=== PATIENT | female | born 1955 | race Caucasian/White ===

== ENCOUNTER 2019-04-08 08:51 | Inpatient (IN) | payer BC ==
--- NOTE | 2019-04-08 09:19 | EDM.PDOC ---
ED HPI GENERAL MEDICAL PROBLEM - General Chief Complaint: Gastrointestinal Problem Stated Complaint: BLOOD COMING OUT OF BUTTOCK POST COLONOSCOPY SURG Time Seen by Provider: 04/08/19 09:12 Source of Information: Reports: Patient History Limitations: Reports: No Limitations - History of Present Illness INITIAL COMMENTS - FREE TEXT/NARRATIVE: 63-year-old female from [facility] presents to the ED due to 2 large stools this morning it just contained bright red blood. These 2 stools occurred within about 10-15 minutes of each other this morning. Patient had maroon colored stool the last couple of days perhaps 3 bowel movements yesterday and 2 the day prior mixed with stool. Diffuse lower abdominal cramping pain. No nausea or vomiting. Appetite has been normal. Of note she had a colonoscopy performed in [place] on March 30 and a polyp was resected. This is her second colonoscopy in the last 7 years. She had polyps resected on the first occasion as well. He never had any bleeding per rectum after the polyp resection after this polyp removal. She feels a little lightheaded dizzy. No shortness of breath. Her color looks good. Onset: Today Onset Date: 04/08/19 Onset Time: 07:00 Duration: Minutes:, Other (2 large bright red bloody stools per rectum this morning. Melena stool for the last 2 days.) Location: Reports: Abdomen (Lower GI bleeding.) Quality: Reports: Other Severity: Mild (Mild diffuse lower abdominal cramping pain) Improves with: Reports: None Worsens with: Reports: None Context: Reports: Other (Spontaneous occurrence. Colonoscopy was done March 30.). Denies: Activity, Exercise, Lifting, Sick Contact, Trauma Associated Symptoms: Reports: Malaise, Nausea/Vomiting, Other (Feeling slightly lightheaded at times). 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: Reports: Other (see below) (Patient doesn't take any blood thinners.) Lower Abdomen Pain Score (Numeric/FACES): 3 - Related Data Allergies Allergy/AdvReac Type Severity Reaction Status Date / Time Penicillins Allergy Other Verified 04/08/19 09:09 Sulfa (Sulfonamide Allergy Anaphylactic Verified 04/08/19 09:09 Antibiotics) Shock Home Meds: Home Meds DULoxetine [Cymbalta] 60 mg PO DAILY 04/08/19 [History] Diclofenac Sodium 150 mg PO DAILY 04/08/19 [History] Lisinopril/Hydrochlorothiazide [Lisinopril-Hctz 20-12.5 mg Tab] 1 tab PO DAILY 04/08/19 [History] Metoprolol Succinate [Toprol XL] 25 mg PO DAILY 04/08/19 [History] Past Medical History Cardiovascular History: Reports: Hypertension Gastrointestinal History: Reports: Other (See Below) (Colonic polyps resected 2.) - Past Surgical History GI Surgical History: Reports: Cholecystectomy, Colonoscopy (2 with polyp resections on both occurrences. She believes her first colonoscopy was done 7 years ago and the second was just done March 30 of this year with a polyp resection once again.) Social & Family History - Living Situation & Occupation Living situation: Reports: Occupation: Employed Social History Comment: Here in [facility] visiting from [place], [place]. ED ROS GENERAL - Review of Systems Review Of Systems: See Below Constitutional: Reports: Decreased Appetite. Denies: Fever, Chills, Malaise, Weakness, Fatigue, Weight Loss HEENT: Reports: No Symptoms Respiratory: Reports: No Symptoms Cardiovascular: Reports: Blood Pressure Problem Endocrine: Reports: Fatigue GI/Abdominal: Reports: Abdominal Pain, Decreased Appetite (Mild vague lower bowel discomfort but not pain.), Hematochezia, Melena (bright red bleeding per rectum 2 within a short period of time this morning. Will 3 times yesterday and twice the day prior.) : Reports: No Symptoms Musculoskeletal: Reports: No Symptoms Skin: Reports: No Symptoms Neurological: Reports: No Symptoms Psychiatric: Reports: No Symptoms Hematologic/Lymphatic: Reports: No Symptoms Immunologic: Reports: No Symptoms ED EXAM, GI/ABD - Physical Exam Exam: See Below Exam Limited By: No Limitations General Appearance: Alert, WD/WN, No Apparent Distress, Other (Color looks good. Temperature is 35.9. Heart rate was 99 and sinus. Respiratory rate of 20 BP 139/90 pulse oximetry 94% on room air.) Eyes: Bilateral: Normal Appearance Throat/Mouth: Normal Inspection, Normal Lips, Normal Teeth, Normal Oropharynx Respiratory/Chest: No Respiratory Distress, Lungs Clear, Normal Breath Sounds, No Accessory Muscle Use Cardiovascular: Normal Peripheral Pulses, Regular Rate, Rhythm, No Edema, No Gallop, No Murmur, No Rub GI/Abdominal Exam: Soft, Non-Tender, No Organomegaly, No Abnormal Bruit, No Mass , Pelvis Stable (Bowel sounds were fairly quiet sent in all 4 quadrants.), Abnormal Bowel Sounds Back Exam: Normal Inspection, Full Range of Motion. No: CVA Tenderness (L), CVA Tenderness (R) Extremities: Normal Inspection, Normal Range of Motion, Non-Tender, No Pedal Edema, Normal Capillary Refill Neurological: Alert, Oriented, CN II-XII Intact, Normal Cognition Psychiatric: Normal Affect, Normal Mood Skin Exam: Warm, Dry, Normal Color, No Rash EKG INTERPRETATION EKG Date: 04/08/19 Time: 09:45 Rhythm: NSR Rate (Beats/Min): 85 Percy: Normal P-Wave: Present QRS: Other (Decreased voltage throughout the precordial leads. Left ventricular hypertrophy pattern) ST-T: Normal QT: Normal EKG Interpretation Comments: Abnormal ECG Course - Vital Signs Last Recorded V/S: Last Vital Signs Temp 36.8 C 04/08/19 11:50 Pulse 92 04/08/19 11:50 Resp 20 04/08/19 11:50 BP 147/86 H 04/08/19 11:50 Pulse Ox 95 04/08/19 11:50 Orthostatic Blood Pressure [ 93/58 Standing] Orthostatic Blood Pressure [ 125/88 Supine] - Orders/Labs/Meds Orders: Active Orders 24 hr Category Date Time Status PATIENT RETYPE [BBK] Routine Lab 04/08/19 10:54 Ordered Medication Orders Potassium Chloride/Dextrose/Sod Cl (D5 Ns With 20 Meq Kcl) 1,000 mls @ 150 mls/ hr IV ASDIRECTED [facility] Last Admin: 04/08/19 12:17 Dose: 150 mls/hr Lactated Ringer's (Ringers, Lactated) 1,000 mls @ 150 mls/hr IV ASDIRECTED [facility] Ondansetron HCl (Zofran) 4 mg IVPUSH Q6HR PRN PRN Reason: Nausea Labs: Laboratory Tests 04/08/19 04/08/19 04/08/19 Range/Units 09:23 09:23 09:23 WBC 6.84 (3.98-10.04) K/mm3 RBC 3.96 L (3.98-5.22) M/mm3 Hgb 12.6 (11.2-15.7) gm/dl Hct 38.6 (34.1-44.9) % MCV 97.5 H (79.4-94.8) fl MCH 31.8 (25.6-32.2) pg MCHC 32.6 (32.2-35.5) g/dl RDW Std Deviation 48.3 H (36.4-46.3) fL Plt Count 329 (182-369) K/mm3 MPV 8.8 L (9.4-12.3) fl Neut % (Auto) 59.4 (34.0-71.1) % Lymph % (Auto) 26.5 (19.3-51.7) % [place] % (Auto) 10.4 (4.7-12.5) % Eos % (Auto) 3.1 (0.7-5.8) Baso % (Auto) 0.6 (0.1-1.2) % Neut # (Auto) 4.07 (1.56-6.13) K/mm3 Lymph # (Auto) 1.81 (1.18-3.74) K/mm3 [place] # (Auto) 0.71 H (0.24-0.36) K/mm3 Eos # (Auto) 0.21 (0.04-0.36) K/mm3 Baso # (Auto) 0.04 (0.01-0.08) K/mm3 PT 10.7 (9.7-12.0) SECONDS INR 0.98 APTT 27 (22-31) SECONDS Sodium 142 (136-145) mEq/L Potassium 4.4 (3.5-5.1) mEq/L Chloride 106 (98-107) mEq/L Carbon Dioxide 27 (21-32) mEq/L Anion Gap 13.4 (5-15) BUN 33 H (7-18) mg/dL Creatinine 0.9 (0.55-1.02) mg/dL Est Cr Clr Drug Dosing 69.19 mL/min Estimated GFR (MDRD) > 60 (>60) mL/min BUN/Creatinine Ratio 36.7 H (14-18) Glucose 99 (80-115) mg/dL Calcium 8.5 (8.5-10.1) mg/dL Magnesium 2.0 (1.8-2.4) mg/dl Total Bilirubin 0.4 (0.2-1.0) mg/dL AST 29 (15-37) U/L ALT 73 H (14-59) U/L Alkaline Phosphatase 74 (46-116) U/L Total Protein 6.6 (6.4-8.2) g/dl Albumin 3.2 L (3.4-5.0) g/dl Globulin 3.4 gm/dL Albumin/Globulin Ratio 0.9 L (1-2) Blood Type Gel Antibody Screen 04/08/19 Range/Units 09:23 WBC (3.98-10.04) K/mm3 RBC (3.98-5.22) M/mm3 Hgb (11.2-15.7) gm/dl Hct (34.1-44.9) % MCV (79.4-94.8) fl MCH (25.6-32.2) pg MCHC (32.2-35.5) g/dl RDW Std Deviation (36.4-46.3) fL Plt Count (182-369) K/mm3 MPV (9.4-12.3) fl Neut % (Auto) (34.0-71.1) % Lymph % (Auto) (19.3-51.7) % [place] % (Auto) (4.7-12.5) % Eos % (Auto) (0.7-5.8) Baso % (Auto) (0.1-1.2) % Neut # (Auto) (1.56-6.13) K/mm3 Lymph # (Auto) (1.18-3.74) K/mm3 [place] # (Auto) (0.24-0.36) K/mm3 Eos # (Auto) (0.04-0.36) K/mm3 Baso # (Auto) (0.01-0.08) K/mm3 PT (9.7-12.0) SECONDS INR APTT (22-31) SECONDS Sodium (136-145) mEq/L Potassium (3.5-5.1) mEq/L Chloride (98-107) mEq/L Carbon Dioxide (21-32) mEq/L Anion Gap (5-15) BUN (7-18) mg/dL Creatinine (0.55-1.02) mg/dL Est Cr Clr Drug Dosing mL/min Estimated GFR (MDRD) (>60) mL/min BUN/Creatinine Ratio (14-18) Glucose (80-115) mg/dL Calcium (8.5-10.1) mg/dL Magnesium (1.8-2.4) mg/dl Total Bilirubin (0.2-1.0) mg/dL AST (15-37) U/L ALT (14-59) U/L Alkaline Phosphatase (46-116) U/L Total Protein (6.4-8.2) g/dl Albumin (3.4-5.0) g/dl Globulin gm/dL Albumin/Globulin Ratio (1-2) Blood Type O POSITIVE Gel Antibody Screen Negative Meds: Medications Generic Name Dose Route Start Last Admin Trade Name Freq PRN Reason Stop Dose Admin Potassium Chloride/Dextrose/Sod Cl 1,000 mls @ 150 mls/hr 04/08/19 11:45 12:17 D5 Ns With 20 Meq Kcl IV 150 mls/hr ASDIRECTED ANN Administration Lactated Ringer's 1,000 mls @ 150 mls/hr 04/08/19 11:45 Ringers, Lactated IV ASDIRECTED ANN Ondansetron HCl 4 mg 04/08/19 11:38 Zofran IVPUSH Q6HR PRN Nausea Discontinued Medications Generic Name Dose Route Start Last Admin Trade Name Freq PRN Reason Stop Dose Admin Sodium Chloride 1,000 mls @ 250 mls/hr 04/08/19 09:30 04/08/19 10:40 Normal Saline IV 250 mls/hr ASDIRECTED ANN Administration - Radiology Interpretation Free Text/Narrative:: 63-year-old female presents to the ED with melena stool 2 the day prior 3 times yesterday mixed with stool and bright red bleeding on its own 2 this morning about 10 minutes apart with a large gushes of bright red blood per rectum. Patient had a colonoscopy performed on of this year in [facility] where she resides. She is currently here in [facility]. Her pressure is 1/25/88 supine with a heart rate of 87 and standing blood pressure is 93/58 with pulse of 94 indicating she is mildly orthostatic. Plan we discussed the potential need for blood and she has no objections. Consent for blood transfusion will be signing case we need blood. At this time she has a benign abdomen. A KUB will be performed. Routine labs including coags to be done. Likely will need admission to the hospital at least on an observation basis due to fairly active GI bleeding this morning. IV will be normal saline at 250 mils per hour. - Re-Assessments/Exams Free Text/Narrative Re-Assessment/Exam: 04/08/19 10:43 KUB appears to be within normal limits. 04/08/19 10:45 Labs reveal a normal white count at 6.84. Hemoglobin is 12.6 with hematocrit 38.6. MCV is mildly elevated at 97.5. Platelet callus 3 and 29, 000. The differential shows 59% neutrophils PT is 10.7 with an INR of 0.98. PTT is 27. Sodium 142 with potassium of 4.4. Chloride is 106 with a bicarbonate of 27. Anion gap is 13.4. BUN is slightly elevated at 33 with a creatinine of 0.9. The slightly elevated BUN it may be suggestive of an upper GI bleed. Glucose is 99 with a calcium of 8.5. Magnesium is 2.0 liver function is normal other than slightly elevated ALT at 73. Total protein is 6.6 with an albumin fraction of 3.2. 04/08/19 11:00 I had spoken with Dr. Walker earlier prior to him going to [facility] and identified that this lady would need to be admitted to the hospital. He asked me to call Dr. Wild car electronics installer surgeon and I have done so and spoken with her. She will see the patient on the [facility]. Bridge orders were written. Departure - Departure Time of Disposition: 11:55 Disposition: Admitted As Inpatient 66 Condition: Fair Clinical Impression: Lower GI hemorrhage - Discharge Information *PRESCRIPTION DRUG MONITORING PROGRAM REVIEWED*: Not Applicable *COPY OF PRESCRIPTION DRUG MONITORING REPORT IN PATIENT FABRICE: Not Applicable Sepsis Event Note - Evaluation Sepsis Screening Result: No Definite Risk - Focused Exam Vital Signs: Vital Signs Temp Pulse Resp BP Pulse Ox 04/08/19 09:05 35.9 C L 99 20 139/90 94 L Date Exam was Performed: 04/08/19 Time Exam was Performed: 14:53 - My Orders Last 24 Hours: My Active Orders 04/08/19 10:54 PATIENT RETYPE [BBK] Routine - Assessment/Plan Last 24 Hours: My Active Orders 04/08/19 10:54 PATIENT RETYPE [BBK] Routine
[2019-04-08] MEDS ORDERED: Sodium Chloride 0.9% 1,000 ML IV SCH (09:30)
--- NOTE | 2019-04-08 09:53 | CR ---
Abdomen: Supine view of the abdomen was obtained. Comparison: No prior abdominal imaging is available. Scoliosis and degenerative change is noted within the spine. Surgical clips are seen within the upper right abdomen. Right hip prosthesis is seen. Calcifications are noted within the pelvis which are believed to be incidental. Bowel gas pattern is normal. Impression: 1. Findings as noted above. 2. Nothing acute is appreciated on supine abdominal x-ray. Diagnostic code #2 This report was dictated in [place] Standard Time
[2019-04-08] MEDS ORDERED: Ondansetron 4 MG/2 ML SDV IVPUSH PRN (11:38)
[2019-04-08] MEDS ORDERED: Dextrose 5%-0.9% NaCl with KCl 1,000 ML IV SCH (11:45)
[2019-04-08] MEDS ORDERED: Lactated Ringers 1,000 ML IV SCH (11:45)
--- NOTE | 2019-04-08 12:42 | PCM.CONS ---
H&P History of Present Illness - General Date of Service: 04/08/19 Admit Problem/Dx: Admission Diagnosis/Problem Admission Diagnosis/Problem Gastric hemorrhage Source of Information: Patient, Provider History Limitations: Reports: No Limitations - History of Present Illness Initial Comments - Free Text/Narative: The patient is a 63 y/o female who presents with hematochezia and BRBPR. She reports having a colonoscopy 9 days ago at an outside facility for history of colon polyps. She had a large polyp removed and was warned that she may have some bleeding; no diverticulosis reported by patient. She sought treatment because the bleeding become more profuse. She noted hematochezia 5 days ago that progressed to BRBPR today. She had some lightheadedness at home. She denies any dyspnea. No nausea/vomiting or melena. Upon presentation, she had orthostatic hypotension in the ED. Lower Abdomen Pain Score (Numeric/FACES): 3 - Related Data Allergies/Adverse Reactions: Allergies Allergy/AdvReac Type Severity Reaction Status Date / Time Penicillins Allergy Other Verified 04/08/19 09:09 Sulfa (Sulfonamide Allergy Anaphylactic Verified 04/08/19 09:09 Antibiotics) Shock Home Medications: Home Meds DULoxetine [Cymbalta] 60 mg PO DAILY 04/08/19 [History] Diclofenac Sodium 150 mg PO DAILY 04/08/19 [History] Lisinopril/Hydrochlorothiazide [Lisinopril-Hctz 20-12.5 mg Tab] 1 tab PO DAILY 04/08/19 [History] Metoprolol Succinate [Toprol XL] 25 mg PO DAILY 04/08/19 [History] Past Medical History HEENT History: Reports: Impaired Vision Cardiovascular History: Reports: Hypertension Gastrointestinal History: Reports: Other (See Below) (Colonic polyps resected 2.) Genitourinary History: Reports: None 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 She believes her first colonoscopy was done 7 years ago and the second was just done March 30 of this year with a polyp resection once again.) Social & Family History - Family History Cardiac: Reports: Hypertension Endocrine/Metabolic: Reports: Diabetes, type II - Tobacco Use Smoking Status *Q: Never Smoker Second Hand Smoke Exposure: No - Caffeine Use Caffeine Use: Reports: Soda - Recreational Drug Use Recreational Drug Use: No - Living Situation & Occupation Living situation: Reports: Occupation: Employed H&P Review of Systems - Review of Systems: Review Of Systems: See Below General: Denies: Fever, Chills HEENT: Reports: No Symptoms Pulmonary: Reports: No Symptoms Cardiovascular: Reports: Lightheadedness Gastrointestinal: Reports: Abdominal Pain, Hematochezia. Denies: Anorexia, Melena, Nausea, Vomiting Genitourinary: Reports: No Symptoms Musculoskeletal: Reports: No Symptoms Skin: Reports: No Symptoms Neurological: Reports: No Symptoms Hematologic/Lymphatic: Denies: Easy Bleeding, Easy Bruising Exam - Exam Exam: See Below - Vital Signs Vital Signs: Last Vital Signs Temp 36.8 C 04/08/19 11:50 Pulse 92 04/08/19 11:50 Resp 20 04/08/19 11:50 BP 147/86 H 04/08/19 11:50 Pulse Ox 95 04/08/19 11:50 Orthostatic Blood Pressure [ 93/58 Standing] Orthostatic Blood Pressure [ 125/88 Supine] Weight: 92.714 kg - Exam Quality Assessment: No: Supplemental Oxygen General: Alert, Oriented HEENT: EOMI Neck: Supple Lungs: Clear to Auscultation, Normal Respiratory Effort Cardiovascular: Regular Rate, Regular Rhythm GI/Abdominal Exam: Soft, Non-Tender, No Distention Rectal (Female) Exam: No: Hemorrhoids (no external hemorrhoids) Extremities: Normal Inspection, No Pedal Edema Peripheral Pulses: 2+: Dorsalis Pedis (L), Dorsalis Pedis (R) Skin: Warm, Dry, Intact Neurological: Cranial Nerves Intact Neuro Extensive - Mental Status: Normal Mood/Affect - Patient Data Lab Results Last 24 hrs: Laboratory Results - last 24 hr 04/08/19 04/08/19 04/08/19 Range/Units 09:23 09:23 09:23 WBC 6.84 (3.98-10.04) K/mm3 RBC 3.96 L (3.98-5.22) M/mm3 Hgb 12.6 (11.2-15.7) gm/dl Hct 38.6 (34.1-44.9) % MCV 97.5 H (79.4-94.8) fl MCH 31.8 (25.6-32.2) pg MCHC 32.6 (32.2-35.5) g/dl RDW Std Deviation 48.3 H (36.4-46.3) fL Plt Count 329 (182-369) K/mm3 MPV 8.8 L (9.4-12.3) fl Neut % (Auto) 59.4 (34.0-71.1) % Lymph % (Auto) 26.5 (19.3-51.7) % [place] % (Auto) 10.4 (4.7-12.5) % Eos % (Auto) 3.1 (0.7-5.8) Baso % (Auto) 0.6 (0.1-1.2) % Neut # (Auto) 4.07 (1.56-6.13) K/mm3 Lymph # (Auto) 1.81 (1.18-3.74) K/mm3 [place] # (Auto) 0.71 H (0.24-0.36) K/mm3 Eos # (Auto) 0.21 (0.04-0.36) K/mm3 Baso # (Auto) 0.04 (0.01-0.08) K/mm3 PT 10.7 (9.7-12.0) SECONDS INR 0.98 APTT 27 (22-31) SECONDS Sodium 142 (136-145) mEq/L Potassium 4.4 (3.5-5.1) mEq/L Chloride 106 (98-107) mEq/L Carbon Dioxide 27 (21-32) mEq/L Anion Gap 13.4 (5-15) BUN 33 H (7-18) mg/dL Creatinine 0.9 (0.55-1.02) mg/dL Est Cr Clr Drug Dosing 69.19 mL/min Estimated GFR (MDRD) > 60 (>60) mL/min BUN/Creatinine Ratio 36.7 H (14-18) Glucose 99 (80-115) mg/dL Calcium 8.5 (8.5-10.1) mg/dL Magnesium 2.0 (1.8-2.4) mg/dl Total Bilirubin 0.4 (0.2-1.0) mg/dL AST 29 (15-37) U/L ALT 73 H (14-59) U/L Alkaline Phosphatase 74 (46-116) U/L Total Protein 6.6 (6.4-8.2) g/dl Albumin 3.2 L (3.4-5.0) g/dl Globulin 3.4 gm/dL Albumin/Globulin Ratio 0.9 L (1-2) Blood Type Gel Antibody Screen 04/08/19 Range/Units 09:23 WBC (3.98-10.04) K/mm3 RBC (3.98-5.22) M/mm3 Hgb (11.2-15.7) gm/dl Hct (34.1-44.9) % MCV (79.4-94.8) fl MCH (25.6-32.2) pg MCHC (32.2-35.5) g/dl RDW Std Deviation (36.4-46.3) fL Plt Count (182-369) K/mm3 MPV (9.4-12.3) fl Neut % (Auto) (34.0-71.1) % Lymph % (Auto) (19.3-51.7) % [place] % (Auto) (4.7-12.5) % Eos % (Auto) (0.7-5.8) Baso % (Auto) (0.1-1.2) % Neut # (Auto) (1.56-6.13) K/mm3 Lymph # (Auto) (1.18-3.74) K/mm3 [place] # (Auto) (0.24-0.36) K/mm3 Eos # (Auto) (0.04-0.36) K/mm3 Baso # (Auto) (0.01-0.08) K/mm3 PT (9.7-12.0) SECONDS INR APTT (22-31) SECONDS Sodium (136-145) mEq/L Potassium (3.5-5.1) mEq/L Chloride (98-107) mEq/L Carbon Dioxide (21-32) mEq/L Anion Gap (5-15) BUN (7-18) mg/dL Creatinine (0.55-1.02) mg/dL Est Cr Clr Drug Dosing mL/min Estimated GFR (MDRD) (>60) mL/min BUN/Creatinine Ratio (14-18) Glucose (80-115) mg/dL Calcium (8.5-10.1) mg/dL Magnesium (1.8-2.4) mg/dl Total Bilirubin (0.2-1.0) mg/dL AST (15-37) U/L ALT (14-59) U/L Alkaline Phosphatase (46-116) U/L Total Protein (6.4-8.2) g/dl Albumin (3.4-5.0) g/dl Globulin gm/dL Albumin/Globulin Ratio (1-2) Blood Type O POSITIVE Gel Antibody Screen Negative Result Diagrams: 04/08/19 09:23 04/08/19 09:23 Sepsis Event Note - Evaluation Sepsis Screening Result: No Definite Risk - Focused Exam Vital Signs: Vital Signs Temp Temp Pulse Pulse Resp BP BP 04/08/19 11:50 36.8 C 92 20 147/86 H 04/08/19 09:05 35.9 C L 99 20 139/90 Pulse Ox 04/08/19 11:50 95 04/08/19 09:05 94 L Date Exam was Performed: 04/08/19 Time Exam was Performed: 13:09 Consult PN Assessment/Plan (1) Lower GI bleed SNOMED Code(s): 22171545 Code(s): K92.2 - GASTROINTESTINAL HEMORRHAGE, UNSPECIFIED Current Visit: Yes Problem List Initiated/Reviewed/Updated: Yes Plan: 63 y/o lady with lower GI bleed after recent colonoscopy. Likely bleeding from polypectomy site as pt did not have any diverticula reported to her. - NPO with IVF resuscitation. bolus IVF as needed - Repeat Hg every 6hr. May transfuse as needed - Ambulate and SCDs for DVT ppx, recommend holding any heparin/lovenox - hold home antihypertensives at this time - will continue to monitor for ongoing blood loss - consider prep for repeat colonoscopy if pt has significant continued blood loss Hien Garcia MD General Surgery
--- NOTE | 2019-04-08 14:54 | PCM.HP.2 ---
H&P History of Present Illness - General Date of Service: 04/08/19 Admit Problem/Dx: Admission Diagnosis/Problem Admission Diagnosis/Problem Gastric hemorrhage - History of Present Illness Initial Comments - Free Text/Narative: 63-year-old female who had a colonoscopy done on March 30, 2019 developed maroon-colored stools starting approximately 2 days ago. Patient states that today she has had bright red blood per rectum this morning. She had 2 stools that occur close together. She has not had another bloody stool since coming to the emergency room in hospital. Patient had a moderately large polypectomy during colonoscopy. No diverticulitis was stated. Patient states that she did develop lightheadedness today and was orthostatic in the emergency room. She is otherwise a healthy 63-year-old with past medical history of hypertension and back pain. She is on diclofenac for her back pain. She started this 2 weeks ago and did not hold it for her colonoscopy. In the emergency room EKG was done which showed a normal sinus rhythm with ventricular rate of 85 bpm. Normal P waves, Q waves, and decreased voltage throughout the precordial leads. Orthostatic blood pressures, supine 125/88, standing 93/58. Initial hemoglobin 12.6. Lower Abdomen Pain Score (Numeric/FACES): 3 - Related Data Allergies/Adverse Reactions: Allergies Allergy/AdvReac Type Severity Reaction Status Date / Time Penicillins Allergy Other Verified 04/08/19 09:09 Sulfa (Sulfonamide Allergy Anaphylactic Verified 04/08/19 09:09 Antibiotics) Shock Home Medications: Home Meds DULoxetine [Cymbalta] 60 mg PO DAILY 04/08/19 [History] Diclofenac Sodium 150 mg PO DAILY 04/08/19 [History] Lisinopril/Hydrochlorothiazide [Lisinopril-Hctz 20-12.5 mg Tab] 1 tab PO DAILY 04/08/19 [History] Metoprolol Succinate [Toprol XL] 25 mg PO DAILY 04/08/19 [History] Past Medical History HEENT History: Reports: Impaired Vision Cardiovascular History: Reports: Hypertension Gastrointestinal History: Reports: Other (See Below) (Colonic polyps resected 2.) Genitourinary History: Reports: None 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 She believes her first colonoscopy was done 7 years ago and the second was just done March 30 of this year with a polyp resection once again.) Social & Family History - Family History Cardiac: Reports: Hypertension Endocrine/Metabolic: Reports: Diabetes, type II - Tobacco Use Smoking Status *Q: Never Smoker Second Hand Smoke Exposure: No - Caffeine Use Caffeine Use: Reports: Soda - Recreational Drug Use Recreational Drug Use: No - Living Situation & Occupation Living situation: Reports: Occupation: Employed H&P Review of Systems - Review of Systems: Review Of Systems: See Below General: Reports: No Symptoms HEENT: Reports: No Symptoms Pulmonary: Reports: No Symptoms Cardiovascular: Reports: No Symptoms Gastrointestinal: Reports: Abdominal Pain, Bloody Stool Genitourinary: Reports: No Symptoms Musculoskeletal: Reports: Back Pain Skin: Reports: No Symptoms Psychiatric: Reports: No Symptoms Neurological: Reports: No Symptoms Hematologic/Lymphatic: Reports: No Symptoms Immunologic: Reports: No Symptoms Exam - Exam Exam: See Below - Vital Signs Vital Signs: Last Vital Signs Temp 98.2 F 04/08/19 11:50 Pulse 92 04/08/19 11:50 Resp 20 04/08/19 11:50 BP 147/86 H 04/08/19 11:50 Pulse Ox 95 04/08/19 11:50 Orthostatic Blood Pressure [ 93/58 Standing] Orthostatic Blood Pressure [ 125/88 Supine] Weight: 204 lb 6.4 oz - Exam General: Alert, Oriented, 4 HEENT: Conjunctiva Clear, EACs Clear, Hearing Intact, Mucosa Moist & [place] Neck: Supple, Trachea Midline, 2 Lungs: Clear to Auscultation, Normal Respiratory Effort Cardiovascular: Regular Rate, Regular Rhythm GI/Abdominal Exam: Normal Bowel Sounds, Soft, Non-Tender, No Organomegaly, No Distention, No Abnormal Bruit, No Mass Extremities: Normal Inspection, Normal Range of Motion, Non-Tender, No Pedal Edema, Normal Capillary Refill Peripheral Pulses: 2+: Posterior Tibial (L), Posterior Tibial (R), Dorsalis Pedis (L), Dorsalis Pedis (R) Skin: Warm, Dry, Intact Neuro Extensive - Mental Status: Alert, Oriented x3, Normal Mood/Affect, Normal Cognition Neuro Extensive - Motor, Sensory, Reflexes: CN II-XII Intact Psychiatric: Alert, Normal Affect, Normal Mood - Patient Data Lab Results Last 24 hrs: Laboratory Results - last 24 hr 04/08/19 04/08/19 04/08/19 Range/Units 09:23 09:23 09:23 WBC 6.84 (3.98-10.04) K/mm3 RBC 3.96 L (3.98-5.22) M/mm3 Hgb 12.6 (11.2-15.7) gm/dl Hct 38.6 (34.1-44.9) % MCV 97.5 H (79.4-94.8) fl MCH 31.8 (25.6-32.2) pg MCHC 32.6 (32.2-35.5) g/dl RDW Std Deviation 48.3 H (36.4-46.3) fL Plt Count 329 (182-369) K/mm3 MPV 8.8 L (9.4-12.3) fl Neut % (Auto) 59.4 (34.0-71.1) % Lymph % (Auto) 26.5 (19.3-51.7) % [place] % (Auto) 10.4 (4.7-12.5) % Eos % (Auto) 3.1 (0.7-5.8) Baso % (Auto) 0.6 (0.1-1.2) % Neut # (Auto) 4.07 (1.56-6.13) K/mm3 Lymph # (Auto) 1.81 (1.18-3.74) K/mm3 [place] # (Auto) 0.71 H (0.24-0.36) K/mm3 Eos # (Auto) 0.21 (0.04-0.36) K/mm3 Baso # (Auto) 0.04 (0.01-0.08) K/mm3 PT 10.7 (9.7-12.0) SECONDS INR 0.98 APTT 27 (22-31) SECONDS Sodium 142 (136-145) mEq/L Potassium 4.4 (3.5-5.1) mEq/L Chloride 106 (98-107) mEq/L Carbon Dioxide 27 (21-32) mEq/L Anion Gap 13.4 (5-15) BUN 33 H (7-18) mg/dL Creatinine 0.9 (0.55-1.02) mg/dL Est Cr Clr Drug Dosing 69.19 mL/min Estimated GFR (MDRD) > 60 (>60) mL/min BUN/Creatinine Ratio 36.7 H (14-18) Glucose 99 (80-115) mg/dL Calcium 8.5 (8.5-10.1) mg/dL Magnesium 2.0 (1.8-2.4) mg/dl Total Bilirubin 0.4 (0.2-1.0) mg/dL AST 29 (15-37) U/L ALT 73 H (14-59) U/L Alkaline Phosphatase 74 (46-116) U/L Total Protein 6.6 (6.4-8.2) g/dl Albumin 3.2 L (3.4-5.0) g/dl Globulin 3.4 gm/dL Albumin/Globulin Ratio 0.9 L (1-2) Blood Type Gel Antibody Screen 04/08/19 Range/Units 09:23 WBC (3.98-10.04) K/mm3 RBC (3.98-5.22) M/mm3 Hgb (11.2-15.7) gm/dl Hct (34.1-44.9) % MCV (79.4-94.8) fl MCH (25.6-32.2) pg MCHC (32.2-35.5) g/dl RDW Std Deviation (36.4-46.3) fL Plt Count (182-369) K/mm3 MPV (9.4-12.3) fl Neut % (Auto) (34.0-71.1) % Lymph % (Auto) (19.3-51.7) % [place] % (Auto) (4.7-12.5) % Eos % (Auto) (0.7-5.8) Baso % (Auto) (0.1-1.2) % Neut # (Auto) (1.56-6.13) K/mm3 Lymph # (Auto) (1.18-3.74) K/mm3 [place] # (Auto) (0.24-0.36) K/mm3 Eos # (Auto) (0.04-0.36) K/mm3 Baso # (Auto) (0.01-0.08) K/mm3 PT (9.7-12.0) SECONDS INR APTT (22-31) SECONDS Sodium (136-145) mEq/L Potassium (3.5-5.1) mEq/L Chloride (98-107) mEq/L Carbon Dioxide (21-32) mEq/L Anion Gap (5-15) BUN (7-18) mg/dL Creatinine (0.55-1.02) mg/dL Est Cr Clr Drug Dosing mL/min Estimated GFR (MDRD) (>60) mL/min BUN/Creatinine Ratio (14-18) Glucose (80-115) mg/dL Calcium (8.5-10.1) mg/dL Magnesium (1.8-2.4) mg/dl Total Bilirubin (0.2-1.0) mg/dL AST (15-37) U/L ALT (14-59) U/L Alkaline Phosphatase (46-116) U/L Total Protein (6.4-8.2) g/dl Albumin (3.4-5.0) g/dl Globulin gm/dL Albumin/Globulin Ratio (1-2) Blood Type O POSITIVE Gel Antibody Screen Negative Result Diagrams: 04/08/19 14:55 04/08/19 09:23 Sepsis Event Note - Evaluation Sepsis Screening Result: No Definite Risk - Focused Exam Vital Signs: Vital Signs Temp Temp Pulse Pulse Resp BP BP 04/08/19 11:50 98.2 F 92 20 147/86 H 04/08/19 09:05 96.6 F L 99 20 139/90 Pulse Ox 04/08/19 11:50 95 04/08/19 09:05 94 L Date Exam was Performed: 04/08/19 Time Exam was Performed: 17:49 Problem List Initiated/Reviewed/Updated: Yes Orders Last 24hrs: Active Orders 24 hr Category Date Time Status Admission Status [Patient Status] [ADT] Routine ADT 04/08/19 11:59 Active Patient Status [ADT] Routine ADT 04/08/19 11:21 Active Notify Provider Consults [RC] ASDIRECTED Care 04/08/19 11:39 Inactive Notify Provider Consults [RC] ASDIRECTED Care 04/08/19 11:42 Active Up With Assistance [RC] ASDIRECTED Care 04/08/19 12:26 Active Consult to Physician [CONS] Routine Cons 04/08/19 11:41 Active NPO [Nothing Per Oral Diet] [DIET] Diet 04/08/19 Dinner Active HEMOGLOBIN/HEMATOCRIT,HH [HEME] Routine Lab 04/08/19 15:00 Ordered PATIENT RETYPE [BBK] Routine Lab 04/08/19 10:54 Ordered Dextrose 5%-0.9% NaCl with KCl [D5 NS with 20 mEq KCl] Med 04/08/19 11:45 Active 1,000 ml IV ASDIRECTED Lactated Ringers [Ringers, Lactated] 1,000 ml Med 04/08/19 11:45 Active IV ASDIRECTED Ondansetron [Zofran] Med 04/08/19 11:38 Active 4 mg IVPUSH Q6HR PRN Medication Orders Potassium Chloride/Dextrose/Sod Cl (D5 Ns With 20 Meq Kcl) 1,000 mls @ 150 mls/ hr IV ASDIRECTED ANN Last Admin: 04/08/19 12:17 Dose: 150 mls/hr Lactated Ringer's (Ringers, Lactated) 1,000 mls @ 150 mls/hr IV ASDIRECTED ANN Ondansetron HCl (Zofran) 4 mg IVPUSH Q6HR PRN PRN Reason: Nausea Assessment/Plan Comment:: Assessment * GI bleed with hematochezia following colonoscopy with polypectomy * Fluid resuscitated in the emergency room * From [place], [place] * Initial hemoglobin 12.6 * Normal coag studies including PT of 10.7 with an INR of 0.98, PTT 27 * BUN slightly elevated at 33 likely secondary to digestive blood * Normal KUB * On diclofenac at home * Dr. Paredes in surgery was consulted * History of hypertension * Blood pressure recovered with fluid resuscitation in the emergency room * Chronic low back pain * On diclofenac for 2 weeks Plan * Admit to medical floor on telemetry * Follow hemoglobin initially every 6 hours * Stop all NSAIDs * N.p.o. except ice chips until morning when Dr. Paredes will reassess * IV fluids at 125 mL an hour * CBC, CMP, magnesium in the morning * Plan to continue home meds in the morning except diclofenac * Tylenol for pain * VTE prophylaxis with support stockings * CODE STATUS: Full code * Anticipated length of stay 2 days. - Mortality Measure Prognosis:: Good
[2019-04-08] MEDS: Lactated Ringers 1,000 ML IV SCH (18:16)
[2019-04-09] MEDS: Lactated Ringers 1,000 ML IV SCH (01:57)
--- NOTE | 2019-04-09 08:27 | PCM.CONSN ---
- General Info Date of Service: 04/09/19 Admission Dx/Problem (Free Text): Admission Diagnosis/Problem Admission Diagnosis/Problem Gastric hemorrhage Functional Status: Reports: Pain Controlled, Ambulating, Urinating, Other (no further hematochezia. denies abdominal pain) - Patient Data Vitals - Most Recent: Last Vital Signs Temp 36.7 C 04/08/19 21:27 Pulse 83 04/09/19 00:28 Resp 19 04/09/19 00:28 BP 155/98 H 04/09/19 00:28 Pulse Ox 94 L 04/09/19 00:28 Orthostatic Blood Pressure [ 93/58 Standing] Orthostatic Blood Pressure [ 125/88 Supine] Weight - Most Recent: 92.079 kg I&O - Last 24 Hours: Intake & Output 04/08/19 04/09/19 04/09/19 22:59 06:59 14:59 Intake Total 723 150 Output Total 600 Balance 123 150 Lab Results Last 24 Hours: Laboratory Results - last 24 hr 04/08/19 04/08/19 04/08/19 Range/Units 09:23 09:23 09:23 WBC 6.84 (3.98-10.04) K/mm3 RBC 3.96 L (3.98-5.22) M/mm3 Hgb 12.6 (11.2-15.7) gm/dl Hct 38.6 (34.1-44.9) % MCV 97.5 H (79.4-94.8) fl MCH 31.8 (25.6-32.2) pg MCHC 32.6 (32.2-35.5) g/dl RDW Std Deviation 48.3 H (36.4-46.3) fL Plt Count 329 (182-369) K/mm3 MPV 8.8 L (9.4-12.3) fl Neut % (Auto) 59.4 (34.0-71.1) % Lymph % (Auto) 26.5 (19.3-51.7) % [place] % (Auto) 10.4 (4.7-12.5) % Eos % (Auto) 3.1 (0.7-5.8) Baso % (Auto) 0.6 (0.1-1.2) % Neut # (Auto) 4.07 (1.56-6.13) K/mm3 Lymph # (Auto) 1.81 (1.18-3.74) K/mm3 [place] # (Auto) 0.71 H (0.24-0.36) K/mm3 Eos # (Auto) 0.21 (0.04-0.36) K/mm3 Baso # (Auto) 0.04 (0.01-0.08) K/mm3 PT 10.7 (9.7-12.0) SECONDS INR 0.98 APTT 27 (22-31) SECONDS Sodium 142 (136-145) mEq/L Potassium 4.4 (3.5-5.1) mEq/L Chloride 106 (98-107) mEq/L Carbon Dioxide 27 (21-32) mEq/L Anion Gap 13.4 (5-15) BUN 33 H (7-18) mg/dL Creatinine 0.9 (0.55-1.02) mg/dL Est Cr Clr Drug Dosing 69.19 mL/min Estimated GFR (MDRD) > 60 (>60) mL/min BUN/Creatinine Ratio 36.7 H (14-18) Glucose 99 (80-115) mg/dL Calcium 8.5 (8.5-10.1) mg/dL Magnesium 2.0 (1.8-2.4) mg/dl Total Bilirubin 0.4 (0.2-1.0) mg/dL AST 29 (15-37) U/L ALT 73 H (14-59) U/L Alkaline Phosphatase 74 (46-116) U/L Total Protein 6.6 (6.4-8.2) g/dl Albumin 3.2 L (3.4-5.0) g/dl Globulin 3.4 gm/dL Albumin/Globulin Ratio 0.9 L (1-2) Blood Type Gel Antibody Screen 04/08/19 04/08/19 04/08/19 Range/Units 09:23 14:55 21:05 WBC (3.98-10.04) K/mm3 RBC (3.98-5.22) M/mm3 Hgb 11.5 11.5 (11.2-15.7) gm/dl Hct 35.6 35.7 (34.1-44.9) % MCV (79.4-94.8) fl MCH (25.6-32.2) pg MCHC (32.2-35.5) g/dl RDW Std Deviation (36.4-46.3) fL Plt Count (182-369) K/mm3 MPV (9.4-12.3) fl Neut % (Auto) (34.0-71.1) % Lymph % (Auto) (19.3-51.7) % [place] % (Auto) (4.7-12.5) % Eos % (Auto) (0.7-5.8) Baso % (Auto) (0.1-1.2) % Neut # (Auto) (1.56-6.13) K/mm3 Lymph # (Auto) (1.18-3.74) K/mm3 [place] # (Auto) (0.24-0.36) K/mm3 Eos # (Auto) (0.04-0.36) K/mm3 Baso # (Auto) (0.01-0.08) K/mm3 PT (9.7-12.0) SECONDS INR APTT (22-31) SECONDS Sodium (136-145) mEq/L Potassium (3.5-5.1) mEq/L Chloride (98-107) mEq/L Carbon Dioxide (21-32) mEq/L Anion Gap (5-15) BUN (7-18) mg/dL Creatinine (0.55-1.02) mg/dL Est Cr Clr Drug Dosing mL/min Estimated GFR (MDRD) (>60) mL/min BUN/Creatinine Ratio (14-18) Glucose (80-115) mg/dL Calcium (8.5-10.1) mg/dL Magnesium (1.8-2.4) mg/dl Total Bilirubin (0.2-1.0) mg/dL AST (15-37) U/L ALT (14-59) U/L Alkaline Phosphatase (46-116) U/L Total Protein (6.4-8.2) g/dl Albumin (3.4-5.0) g/dl Globulin gm/dL Albumin/Globulin Ratio (1-2) Blood Type O POSITIVE Gel Antibody Screen Negative 04/09/19 04/09/19 Range/Units 05:22 05:22 WBC 6.13 (3.98-10.04) K/mm3 RBC 3.81 L (3.98-5.22) M/mm3 Hgb 12.2 (11.2-15.7) gm/dl Hct 37.3 (34.1-44.9) % MCV 97.9 H (79.4-94.8) fl MCH 32.0 (25.6-32.2) pg MCHC 32.7 (32.2-35.5) g/dl RDW Std Deviation 48.6 H (36.4-46.3) fL Plt Count 305 (182-369) K/mm3 MPV 9.0 L (9.4-12.3) fl Neut % (Auto) 49.4 (34.0-71.1) % Lymph % (Auto) 36.1 (19.3-51.7) % [place] % (Auto) 10.3 (4.7-12.5) % Eos % (Auto) 3.9 (0.7-5.8) Baso % (Auto) 0.3 (0.1-1.2) % Neut # (Auto) 3.03 (1.56-6.13) K/mm3 Lymph # (Auto) 2.21 (1.18-3.74) K/mm3 [place] # (Auto) 0.63 H (0.24-0.36) K/mm3 Eos # (Auto) 0.24 (0.04-0.36) K/mm3 Baso # (Auto) 0.02 (0.01-0.08) K/mm3 PT (9.7-12.0) SECONDS INR APTT (22-31) SECONDS Sodium 143 (136-145) mEq/L Potassium 4.0 (3.5-5.1) mEq/L Chloride 108 H (98-107) mEq/L Carbon Dioxide 27 (21-32) mEq/L Anion Gap 12.0 (5-15) BUN 15 (7-18) mg/dL Creatinine 0.7 (0.55-1.02) mg/dL Est Cr Clr Drug Dosing 88.95 mL/min Estimated GFR (MDRD) > 60 (>60) mL/min BUN/Creatinine Ratio 21.4 H (14-18) Glucose 95 (80-115) mg/dL Calcium 8.6 (8.5-10.1) mg/dL Magnesium 2.0 (1.8-2.4) mg/dl Total Bilirubin 0.4 (0.2-1.0) mg/dL AST 43 H (15-37) U/L ALT 65 H (14-59) U/L Alkaline Phosphatase 65 (46-116) U/L Total Protein 6.4 (6.4-8.2) g/dl Albumin 3.2 L (3.4-5.0) g/dl Globulin 3.2 gm/dL Albumin/Globulin Ratio 1.0 (1-2) Blood Type Gel Antibody Screen Med Orders - Current: Current Medications Lactated Ringer's (Ringers, Lactated) 1,000 mls @ 125 mls/hr IV ASDIRECTED [facility] Last Admin: 04/09/19 01:57 Dose: 125 mls/hr Metoprolol Succinate (Toprol Xl) 25 mg PO DAILY [facility] Ondansetron HCl (Zofran) 4 mg IVPUSH Q6HR PRN PRN Reason: Nausea Discontinued Medications Sodium Chloride (Normal Saline) 1,000 mls @ 250 mls/hr IV ASDIRECTED [facility] Last Admin: 04/08/19 10:40 Dose: 250 mls/hr Potassium Chloride/Dextrose/Sod Cl (D5 Ns With 20 Meq Kcl) 1,000 mls @ 150 mls/ hr IV ASDIRECTED [facility] Last Admin: 04/08/19 12:17 Dose: 150 mls/hr Lactated Ringer's (Ringers, Lactated) 1,000 mls @ 150 mls/hr IV ASDIRECTED [facility] - Exam Quality Assessment: No: Supplemental Oxygen General: Alert, Oriented Lungs: Normal Respiratory Effort GI/Abdominal Exam: Soft, Non-Tender, No Distention Sepsis Event Note - Evaluation Sepsis Screening Result: No Definite Risk - Focused Exam Vital Signs: Vital Signs Temp Pulse Resp BP Pulse Ox 04/09/19 00:28 83 19 155/98 H 94 L 04/08/19 21:27 36.7 C 75 16 143/98 H 96 Date Exam was Performed: 04/09/19 Time Exam was Performed: 08:25 Consult PN Assessment/Plan (1) Lower GI bleed SNOMED Code(s): 66570224 Code(s): K92.2 - GASTROINTESTINAL HEMORRHAGE, UNSPECIFIED Current Visit: Yes Problem List Initiated/Reviewed/Updated: Yes Plan: 63 y/o lady with lower GI bleed after recent colonoscopy. Likely bleeding from polypectomy site as pt did not have any diverticula reported to her. Hemoglobin stable with no more episodes of hematochezia - regular diet - Ambulate and SCDs for DVT ppx, recommend holding any heparin/lovenox - may restart home meds - recommend discharge today if pt tolerates regular diet Hien Garcia MD General Surgery
[2019-04-09] MEDS ORDERED: Metoprolol Succinate 25 MG Tab.ER PO SCH (09:00)
[2019-04-09] MEDS ORDERED: Sodium Chloride 0.9% 10 ML Syringe FLUSH PRN (09:29)
[2019-04-09] MEDS ORDERED: DULoxetine 30 MG Cap PO SCH (09:45)
[2019-04-09] MEDS ORDERED: Lisinopril 20 MG Tab PO SCH (09:45)
[2019-04-09] MEDS ORDERED: Hydrochlorothiazide 12.5 MG Cap PO SCH (09:45)
--- NOTE | 2019-04-09 12:02 | PCM.DCSUM1 ---
Discharge Summary - Hospital Course HPI Initial Comments: 63-year-old female who had a colonoscopy done on March 30, 2019 developed maroon-colored stools starting approximately 2 days ago. Patient states that today she has had bright red blood per rectum this morning. She had 2 stools that occur close together. She has not had another bloody stool since coming to the emergency room in hospital. Patient had a moderately large polypectomy during colonoscopy. No diverticulitis was stated. Patient states that she did develop lightheadedness today and was orthostatic in the emergency room. She is otherwise a healthy 63-year-old with past medical history of hypertension and back pain. She is on diclofenac for her back pain. She started this 2 weeks ago and did not hold it for her colonoscopy. In the emergency room EKG was done which showed a normal sinus rhythm with ventricular rate of 85 bpm. Normal P waves, Q waves, and decreased voltage throughout the precordial leads. Orthostatic blood pressures, supine 125/88, standing 93/58. Initial hemoglobin 12.6. Diagnosis: Stroke: No - Discharge Data Discharge Date: 04/09/19 Discharge Disposition: Home, Self-Care 01 Condition: Good - Referral to Home Health Primary Care Physician: PCP Not In Area - Patient Summary/Data Consults: Consultations 04/08/19 11:41 Consult to Physician [CONS] Routine Hospital Course: Patient was admitted for observation of her hemoglobin after having significant hematochezia. Patient's hemoglobin remained stable over 24-hour period. Patient was then discharged home in good condition. - Patient Instructions Diet: Usual Diet as Tolerated Driving: May Drive Today Showering/Bathing: May Shower Other/Special Instructions: Follow up with PCP and surgeon next week. You can restart your diclofenac in 7 days. - Discharge Plan *PRESCRIPTION DRUG MONITORING PROGRAM REVIEWED*: Not Applicable *COPY OF PRESCRIPTION DRUG MONITORING REPORT IN PATIENT FABRICE: Not Applicable Home Medications: Home Meds DULoxetine [Cymbalta] 60 mg PO DAILY 04/08/19 [History] Lisinopril/Hydrochlorothiazide [Lisinopril-Hctz 20-12.5 mg Tab] 1 tab PO DAILY 04/08/19 [History] Metoprolol Succinate [Toprol XL] 25 mg PO DAILY 04/08/19 [History] Oxygen Therapy Mode: Room Air Patient Handouts: Gastrointestinal Bleeding, [id number] Referrals: PCP,Not In Area [Primary Care Provider] - - Discharge Summary/Plan Comment DC Time >30 min.: Yes Discharge Summary/Plan Comment: Follow-up with primary care provider and surgeon. - General Info Date of Service: 04/09/19 Admission Dx/Problem (Free Text: Admission Diagnosis/Problem Admission Diagnosis/Problem Gastric hemorrhage Subjective Update: Patient is doing well without any pain. No bloody stools over the last 24 hours. - Review of Systems General: Reports: No Symptoms HEENT: Reports: No Symptoms Pulmonary: Reports: No Symptoms Gastrointestinal: Reports: No Symptoms - Patient Data Vitals - Most Recent: Last Vital Signs Temp 98.4 F 04/09/19 08:06 Pulse 88 04/09/19 08:38 Resp 12 04/09/19 08:06 BP 119/78 04/09/19 10:57 Pulse Ox 95 04/09/19 08:06 Orthostatic Blood Pressure [ 93/58 Standing] Orthostatic Blood Pressure [ 125/88 Supine] Weight - Most Recent: 203 lb I&O - Last 24 hours: Intake & Output 04/08/19 04/09/19 04/09/19 22:59 06:59 14:59 Intake Total 723 150 Output Total 600 Balance 123 150 Lab Results - Last 24 hrs: Laboratory Results - last 24 hr 04/08/19 04/08/19 04/09/19 Range/Units 14:55 21:05 05:22 WBC 6.13 (3.98-10.04) K/mm3 RBC 3.81 L (3.98-5.22) M/mm3 Hgb 11.5 11.5 12.2 (11.2-15.7) gm/dl Hct 35.6 35.7 37.3 (34.1-44.9) % MCV 97.9 H (79.4-94.8) fl MCH 32.0 (25.6-32.2) pg MCHC 32.7 (32.2-35.5) g/dl RDW Std Deviation 48.6 H (36.4-46.3) fL Plt Count 305 (182-369) K/mm3 MPV 9.0 L (9.4-12.3) fl Neut % (Auto) 49.4 (34.0-71.1) % Lymph % (Auto) 36.1 (19.3-51.7) % [place] % (Auto) 10.3 (4.7-12.5) % Eos % (Auto) 3.9 (0.7-5.8) Baso % (Auto) 0.3 (0.1-1.2) % Neut # (Auto) 3.03 (1.56-6.13) K/mm3 Lymph # (Auto) 2.21 (1.18-3.74) K/mm3 [place] # (Auto) 0.63 H (0.24-0.36) K/mm3 Eos # (Auto) 0.24 (0.04-0.36) K/mm3 Baso # (Auto) 0.02 (0.01-0.08) K/mm3 Sodium (136-145) mEq/L Potassium (3.5-5.1) mEq/L Chloride (98-107) mEq/L Carbon Dioxide (21-32) mEq/L Anion Gap (5-15) BUN (7-18) mg/dL Creatinine (0.55-1.02) mg/dL Est Cr Clr Drug Dosing mL/min Estimated GFR (MDRD) (>60) mL/min BUN/Creatinine Ratio (14-18) Glucose (80-115) mg/dL Calcium (8.5-10.1) mg/dL Magnesium (1.8-2.4) mg/dl Total Bilirubin (0.2-1.0) mg/dL AST (15-37) U/L ALT (14-59) U/L Alkaline Phosphatase (46-116) U/L Total Protein (6.4-8.2) g/dl Albumin (3.4-5.0) g/dl Globulin gm/dL Albumin/Globulin Ratio (1-2) 04/09/19 Range/Units 05:22 WBC (3.98-10.04) K/mm3 RBC (3.98-5.22) M/mm3 Hgb (11.2-15.7) gm/dl Hct (34.1-44.9) % MCV (79.4-94.8) fl MCH (25.6-32.2) pg MCHC (32.2-35.5) g/dl RDW Std Deviation (36.4-46.3) fL Plt Count (182-369) K/mm3 MPV (9.4-12.3) fl Neut % (Auto) (34.0-71.1) % Lymph % (Auto) (19.3-51.7) % [place] % (Auto) (4.7-12.5) % Eos % (Auto) (0.7-5.8) Baso % (Auto) (0.1-1.2) % Neut # (Auto) (1.56-6.13) K/mm3 Lymph # (Auto) (1.18-3.74) K/mm3 [place] # (Auto) (0.24-0.36) K/mm3 Eos # (Auto) (0.04-0.36) K/mm3 Baso # (Auto) (0.01-0.08) K/mm3 Sodium 143 (136-145) mEq/L Potassium 4.0 (3.5-5.1) mEq/L Chloride 108 H (98-107) mEq/L Carbon Dioxide 27 (21-32) mEq/L Anion Gap 12.0 (5-15) BUN 15 (7-18) mg/dL Creatinine 0.7 (0.55-1.02) mg/dL Est Cr Clr Drug Dosing 88.95 mL/min Estimated GFR (MDRD) > 60 (>60) mL/min BUN/Creatinine Ratio 21.4 H (14-18) Glucose 95 (80-115) mg/dL Calcium 8.6 (8.5-10.1) mg/dL Magnesium 2.0 (1.8-2.4) mg/dl Total Bilirubin 0.4 (0.2-1.0) mg/dL AST 43 H (15-37) U/L ALT 65 H (14-59) U/L Alkaline Phosphatase 65 (46-116) U/L Total Protein 6.4 (6.4-8.2) g/dl Albumin 3.2 L (3.4-5.0) g/dl Globulin 3.2 gm/dL Albumin/Globulin Ratio 1.0 (1-2) Med Orders - Current: Current Medications Duloxetine HCl (Cymbalta) 60 mg PO DAILY [facility] Last Admin: 04/09/19 10:58 Dose: 60 mg Hydrochlorothiazide (Hydrochlorothiazide) 12.5 mg PO DAILY [facility] Last Admin: 04/09/19 10:57 Dose: 12.5 mg Lisinopril (Prinivil) 20 mg PO DAILY [facility] Last Admin: 04/09/19 10:57 Dose: 20 mg Metoprolol Succinate (Toprol Xl) 25 mg PO DAILY [facility] Last Admin: 04/09/19 08:38 Dose: 25 mg Ondansetron HCl (Zofran) 4 mg IVPUSH Q6HR PRN PRN Reason: Nausea Sodium Chloride (Saline Flush) 10 ml FLUSH ASDIRECTED PRN PRN Reason: Keep Vein Open Discontinued Medications Sodium Chloride (Normal Saline) 1,000 mls @ 250 mls/hr IV ASDIRECTED [facility] Last Admin: 04/08/19 10:40 Dose: 250 mls/hr Potassium Chloride/Dextrose/Sod Cl (D5 Ns With 20 Meq Kcl) 1,000 mls @ 150 mls/ hr IV ASDIRECTED [facility] Last Admin: 04/08/19 12:17 Dose: 150 mls/hr Lactated Ringer's (Ringers, Lactated) 1,000 mls @ 150 mls/hr IV ASDIRECTED [facility] Lactated Ringer's (Ringers, Lactated) 1,000 mls @ 125 mls/hr IV ASDIRECTED [facility] Last Admin: 04/09/19 01:57 Dose: 125 mls/hr - Exam General: Reports: Alert, Oriented HEENT: Reports: Pupils Equal, Mucous Membr. Moist/[place] Neck: Reports: Supple Lungs: Reports: Clear to Auscultation, Normal Respiratory Effort Cardiovascular: Reports: Regular Rate, Regular Rhythm GI/Abdominal Exam: Normal Bowel Sounds, Soft, Non-Tender, No Organomegaly, No Distention, No Abnormal Bruit, No Mass, Pelvis Stable
== END 2019-04-09 14:02 | disposition home or self-care (01) | DRG 254 ==
LOC: JD.ED 08:51 → JD.MS 11:21
PROVIDERS: ADMIT Family Medicine; ATTEND Family Medicine
DX: K92.1 Melena (principal); K92.2 Gastrointestinal hemorrhage, unspecified; I10 Essential (primary) hypertension; H54.7 Unspecified visual loss; G89.29 Other chronic pain; R73.03 Prediabetes; M54.5 Low back pain; Z90.49 Acquired absence of other specified parts of digestive tract; Z88.0 Allergy status to penicillin; Z88.2 Allergy status to sulfonamides; Z79.899 Other long term (current) drug therapy
CPT/HCPCS: 36415; 74018; 74018-26; 80053; 83735; 85014; 85018; 85025; 85610; 85730; 86850; 86900; 86901; 93005; 93010; 96360; 99285; 99285-25; A9270-GY; J3480; J7030; J7120